=== PATIENT | female | born 1995 | race Caucasian/White ===

== ENCOUNTER 2017-09-29 17:50 | Emergency (ER) | payer MEDICAID ==
[~2017-09-29] VITALS: Ht 170.2 cm; Wt 110.7 kg
[~2017-09-29 17:50] MED LIST: MELATONIN5 M2 PO; PRILOSEC10 MG PO; PROMETHAZINE HC25 M1 PO; TYLENOL325 MG PO
[2017-09-29] MEDS ORDERED: PRENATAL TABLE1 EAC2 PO (18:12)
== END 2017-09-29 21:08 | disposition home or self-care (01) ==
LOC: ED 17:50
DX: O20.0 Threatened abortion (principal); Z87.891 Personal history of nicotine dependence; Z88.0 Allergy status to penicillin; Z79.899 Other long term (current) drug therapy; Z3A.12 12 weeks gestation of pregnancy
CPT/HCPCS: 76801; 76817; 80048; 81001; 84702; 85025; 86900; 86901; 99284

== ENCOUNTER 2018-02-14 14:45 | Emergency (ER) | payer OTHER ==
[~2018-02-14] VITALS: Ht 170.2 cm; Wt 110.7 kg
[~2018-02-14 14:45] MED LIST changes: +PRENATAL TABLE1 EAC2 PO
[2018-02-14] MEDS ORDERED: DIFLUCAN150 MG PO (15:17)
== END 2018-02-14 15:28 | disposition home or self-care (01) ==
LOC: ED 14:45
DX: O98.811 Other maternal infectious and parasitic diseases complicating pregnancy, first trimester (principal); B37.3 Candidiasis of vulva and vagina; O99.89 Other specified diseases and conditions complicating pregnancy, childbirth and the puerperium; R10.13 Epigastric pain; Z88.0 Allergy status to penicillin; Z87.891 Personal history of nicotine dependence; Z3A.08 8 weeks gestation of pregnancy
CPT/HCPCS: 99283

== ENCOUNTER 2018-10-01 03:50 | Inpatient (IN) | payer OTHER ==
[~2018-10-01 03:50] MED LIST changes: +DIFLUCAN150 MG PO; +MACROBID 100 M100 MG PO; +ONDANSETRON HCL8 MG PO; +REGLAN10 MG PO
--- NOTE | 2018-10-02 09:44 | PR ---
[facility] [address] [place], [place] [address] Signed PP Progress Notes Datetime Report Generated by CPArnold: 10/02/2018 09:43 SUBJECTIVE: [id number] Pain: Within normal limits Vital Signs: [id number] Vital Signs: Reviewed; Within Normal Limits EXAM: [id number] Cardiovascular: Not Done Respiratory: Not Done Abdomen/Uterus: Abnormal Lochia: Normal Vulva/Perineum: Not Done Breasts: Not Done CVA Tenderness: Not Done Extremities: Normal Incision: Not Applicable Progress: Normal Exam Comments: Fundus firm, NT @ U. H/H 8.8/27.5, WBC 9.9, plat 150k IMPRESSION/PLAN/PROCEDURES: [id number] Impression: Normal progression Plan: Discharge Procedures: None Progress Notes: Doing well. She is ready for D/C. Signing Physician: Katia Glover MD Copies: ~ *Electronically Signed* 10/02/18 0943 KATIA GLOVER MD PATIENT NAME: TEMITOPE BALDWIN PROGRESS NOTE DATE OF : 96 PHYSICIAN: KATIA GLOVER MD RPT #: [id number] REPORT IS CONFIDENTIAL AND NOT TO BE RELEASED WITHOUT AUTHORIZATION
== END 2018-10-02 14:21 | disposition home or self-care (01) | DRG 806 ==
LOC: FBCO 03:50 → FBC 04:58
PROVIDERS: ADMIT Obstetrics & Gynecology
PROC: 10E0XZZ Delivery of Products of Conception, External Approach (ICD-10-PCS; principal; 2018-10-01)
PROC: 10907ZC Drainage of Amniotic Fluid, Therapeutic from Products of Conception, Via Natural or Artificial Opening (ICD-10-PCS; 2018-10-01)
DX: O62.3 Precipitate labor (principal); O99.324 Drug use complicating childbirth; Z37.0 Single live birth; Z3A.39 39 weeks gestation of pregnancy; O99.62 Diseases of the digestive system complicating childbirth; K80.20 Calculus of gallbladder without cholecystitis without obstruction; K59.09 Other constipation; F12.90 Cannabis use, unspecified, uncomplicated; O99.344 Other mental disorders complicating childbirth; F43.10 Post-traumatic stress disorder, unspecified; O99.214 Obesity complicating childbirth; E66.9 Obesity, unspecified; Z88.0 Allergy status to penicillin; Z86.19 Personal history of other infectious and parasitic diseases; Z87.891 Personal history of nicotine dependence; Z79.899 Other long term (current) drug therapy
CPT/HCPCS: 36415; 85027; J2590

== ENCOUNTER 2019-03-29 08:57 | Emergency (ER) | payer OTHER ==
[~2019-03-29] VITALS: Ht 170.2 cm; Wt 110.7 kg
[2019-03-29] MEDS ORDERED: NORCO 5-325 TA1 EACH PO (09:55)
== END 2019-03-29 10:10 | disposition home or self-care (01) ==
LOC: ED 08:57
DX: S82.832A Other fracture of upper and lower end of left fibula, initial encounter for closed fracture (principal); Z87.891 Personal history of nicotine dependence; Z88.0 Allergy status to penicillin; X50.1XXA Overexertion from prolonged static or awkward postures, initial encounter
CPT/HCPCS: 73610; 99283-25

== ENCOUNTER 2021-09-21 17:29 | Emergency (ER) | payer OTHER ==
[~2021-09-21] VITALS: Ht 170.2 cm; Wt 110.7 kg
[~2021-09-21 17:29] MED LIST changes: +CELECOXIB200 MG PO; +GABAPENTIN300 MG PO; +NORCO 5-325 TA1 EACH PO; +OXYCODONE HCL5 MG PO
[2021-09-21] MEDS ORDERED: ONDANSETRON ODT8 MG PO (20:48)
== END 2021-09-21 21:02 | disposition home or self-care (01) ==
LOC: ED 17:29
DX: U07.1 COVID-19 (principal); Z87.891 Personal history of nicotine dependence; Z88.0 Allergy status to penicillin; Z91.040 Latex allergy status; Z20.822 Contact with and (suspected) exposure to COVID-19
CPT/HCPCS: 36415; 80053; 81001; 83605; 85025; 87040; 99283; A9270; C9803; J7030; U0003

== ENCOUNTER 2023-02-06 14:40 | Emergency (ER) | payer OTHER ==
[~2023-02-06] VITALS: Ht 170.2 cm; Wt 126.1 kg
--- OUTSIDE RECORDS SUMMARY | ~2023-02-06 | XMS | Continuity of Care Document ---
Demographics + + + | Address | [address] | | | [place] [address] | + + + | Preferred Language | Unknown | + + + | Marital Status | Never | + + + | Baptism Affiliation | Unknown | + + + | Race | White | + + + | Ethnic Group | Not or | + + + Author + + + | Author | [facility] | + + + | Organization | [facility] | + + + | Address | [address] | | | [place] [address] | + + + | Phone | | + + + Care Team Providers + + + + | Care Bilingual Legal Assistant Name | Role | Phone | + + + + Unavailable | Unavailable | + + + + Unavailable | Unavailable | + + + + Allergies and Intolerances + + + + + + | date | description | facility | reaction | severity | + + + + + + | (no date) | latex | [facility] | (no reaction) | (no severity) | | [facility] | | | + + + + + + | (no date) | Rash | [facility] | (no reaction) | (no severity) | | | [facility] | | | + + + + + + | (no date) | amoxicillin | [facility] | (no reaction) | (no severity) | | | [facility] | | | + + + + + + Encounters No information. Functional Status No information. Immunizations + + + + | date | description | facility | + + + + | 2014-07-09 00:00 | DTaP | [facility] | + + + + Medications + + + + | date | description | facility | + + + + | 2018-02-14 00:00 | FLUCONAZOLE | [facility] | + + + + | 2021-12-22 00:00 | METOCLOPRAMIDE HCL | [facility] | + + + + | 2021-12-22 00:00 | OMEPRAZOLE | [facility] | + + + + | 2021-12-22 00:00 | MELATONIN | [facility] | + + + + | 2021-12-22 00:00 | ONDANSETRON HCL | [facility] | + + + + | 2021-09-21 00:00 | ONDANSETRON | [facility] | + + + + | 2021-12-22 00:00 | ACETAMINOPHEN | [facility] | + + + + | 2018-04-04 00:00 | NITROFURANTOIN MONOHYD | [facility] | | | MACROCR | | + + + + | 2021-12-22 00:00 | PROMETHAZINE HCL | [facility] | + + + + Problems + + + + | date | description | facility | + + + + | 2017-09-29 00:00 | Threatened | [facility] | + + + + | 2018-02-14 00:00 | Candidiasis of vagina | [facility] | + + + + | 2018-02-14 00:00 | Abdominal pain affecting | [facility] | | | | | + + + + | 2018-04-04 00:00 | Urinary tract infection in | [facility] | | | mother during | | + + + + | 2018-04-04 00:00 | Abdominal pain during | [facility] | | | | | + + + + | 2019-03-29 00:00 | Fracture of left ankle | [facility] | + + + + | 2019-03-29 00:00 | Encounter for medical | [facility] | | | screening examination | | + + + + | 2021-09-21 00:00 | Infection due to severe | [facility] | | | acute respiratory syndrome | | | | coronavirus 2 (SARS-CoV-2) | | + + + + Procedures No information. Results/Labs +--------+--------+ +---------+--------+---------+ | test | date | facility | value | unit | notes | +--------+--------+ +---------+--------+---------+ + + | Result panel 1 | + + + + + +-------+ + + | | 2021-09-21 | [facility] | 5.4 | (missing) | (missing) | | (unavailable | 17:58 [facility] | | | | + + + +-------+ + + + + | Result panel 2 | + + + + + +--------+ + + | | 2021-09-21 | [facility] | 84.8 | (missing) | (missing) | | (unavailable | 17:58 [facility] | | | | + + + +--------+ + + + + | Result panel 3 | + + + + + +-------+ + + | | 2021-09-21 | [facility] | 5.9 | (missing) | (missing) | | (unavailable | 17:58 [facility] | | | | + + + +-------+ + + + + | Result panel 4 | + + + + + +-------+ + + | | 2021-09-21 | [facility] | 8.1 | (missing) | (missing) | | (unavailable | 17:58 [facility] | | | | + + + +-------+ + + + + | Result panel 5 | + + + + + +-------+ + + | | 2021-09-21 | [facility] | 0.8 | (missing) | (missing) | | (unavailable | 17:58 [facility] | | | | + + + +-------+ + + + + | Result panel 6 | + + + + + +-------+ + + | | 2021-09-21 | [facility] | 0.4 | (missing) | (missing) | | (unavailable | 17:58 [facility] | | | | + + + +-------+ + + + + | Result panel 7 | + + + + + +--------+ + + | | 2021-09-21 | [facility] | 4.16 | (missing) | (missing) | | (unavailable | 17:58 [facility] | | | | + + + +--------+ + + + + | Result panel 8 | + + + + + +------+---------+ + | | 2021-09-21 | [facility] | 94 | mg/dL | (missing) | | (unavailable | 17:58 [facility] | | | | + + + +------+---------+ + + + | Result panel 9 | + + + + + +--------+ + + | | 2021-09-21 | [facility] | 11.1 | (missing) | (missing) | | (unavailable | 17:58 [facility] | | | | + + + +--------+ + + + + | Result panel 10 | + + + + + +-----+---------+ + | | 2021-09-21 | [facility] | 9 | mg/dL | (missing) | | (unavailable | 17:58 [facility] | | | | + + + +-----+---------+ + + + | Result panel 11 | + + + + + +--------+---------+ + | | 2021-09-21 | [facility] | 1.01 | mg/dL | (missing) | | (unavailable | 17:58 [facility] | | | | + + + +--------+---------+ + + + | Result panel 12 | + + + + + + + + + | | 2021-09-21 | [facility] | > 60.00 | (missing) | (missing) | | (unavailable | 17:58 [facility] | | | | + + + + + + + + + | Result panel 13 | + + + + + +--------+ + + | | 2021-09-21 | [facility] | 8.91 | (missing) | (missing) | | (unavailable | 17:58 [facility] | | | | + + + +--------+ + + + + | Result panel 14 | + + + + + +-------+ + + | | 2021-09-21 | [facility] | 138 | (missing) | (missing) | | (unavailable | 17:58 [facility] | | | | + + + +-------+ + + + + | Result panel 15 | + + + + + +-------+ + + | | 2021-09-21 | [facility] | 3.6 | (missing) | (missing) | | (unavailable | 17:58 [facility] | | | | + + + +-------+ + + + + | Result panel 16 | + + + + + +-------+ + + | | 2021-09-21 | [facility] | 103 | (missing) | (missing) | | (unavailable | 17:58 [facility] | | | | + + + +-------+ + + + + | Result panel 17 | + + + + + +------+ + + | | 2021-09-21 | [facility] | 25 | (missing) | (missing) | | (unavailable | 17:58 [facility] | | | | + + + +------+ + + + + | Result panel 18 | + + + + + +--------+ + + | | 2021-09-21 | [facility] | 13.6 | (missing) | (missing) | | (unavailable | 17:58 [facility] | | | | + + + +--------+ + + + + | Result panel 19 | + + + + + +-------+---------+ + | | 2021-09-21 | [facility] | 9.0 | mg/dL | (missing) | | (unavailable | 17:58 [facility] | | | | + + + +-------+---------+ + + + | Result panel 20 | + + + + + +--------+ + + | | 2021-09-21 | [facility] | 34.0 | (missing) | (missing) | | (unavailable | 17:58 [facility] | | | | + + + +--------+ + + + + | Result panel 21 | + + + + + +-------+ + + | | 2021-09-21 | [facility] | 7.4 | (missing) | (missing) | | (unavailable | 17:58 [facility] | | | | + + + +-------+ + + + + | Result panel 22 | + + + + + +-------+ + + | | 2021-09-21 | [facility] | 3.6 | (missing) | (missing) | | (unavailable | 17:58 [facility] | | | | + + + +-------+ + + + + | Result panel 23 | + + + + + +-------+ + + | | 2021-09-21 | [facility] | 3.8 | (missing) | (missing) | | (unavailable | 17:58 [facility] | | | | + + + +-------+ + + + + | Result panel 24 | + + + + + +--------+ + + | | 2021-09-21 | [facility] | 0.95 | (missing) | (missing) | | (unavailable | 17:58 [facility] | | | | + + + +--------+ + + + + | Result panel 25 | + + + + + +-------+ + + | | 2021-09-21 | [facility] | 0.2 | (missing) | (missing) | | (unavailable | 17:58 [facility] | | | | + + + +-------+ + + + + | Result panel 26 | + + + + + +------+ + + | | 2021-09-21 | [facility] | 22 | (missing) | (missing) | | (unavailable | 17:58 [facility] | | | | + + + +------+ + + + + | Result panel 27 | + + + + + +------+ + + | | 2021-09-21 | [facility] | 28 | (missing) | (missing) | | (unavailable | 17:58 [facility] | | | | + + + +------+ + + + + | Result panel 28 | + + + + + +------+ + + | | 2021-09-21 | [facility] | 90 | (missing) | (missing) | | (unavailable | 17:58 [facility] | | | | + + + +------+ + + + + | Result panel 29 | + + + + + +--------+ + + | | 2021-09-21 | [facility] | 81.7 | (missing) | (missing) | | (unavailable | 17:58 [facility] | | | | + + + +--------+ + + + + | Result panel 30 | + + + + + +--------+ + + | | 2021-09-21 | [facility] | 26.6 | (missing) | (missing) | | (unavailable | 17:58 [facility] | | | | + + + +--------+ + + + + | Result panel 31 | + + + + + +--------+ + + | | 2021-09-21 | [facility] | 32.5 | (missing) | (missing) | | (unavailable | 17:58 [facility] | | | | + + + +--------+ + + + + | Result panel 32 | + + + + + +--------+ + + | | 2021-09-21 | [facility] | 15.0 | (missing) | (missing) | | (unavailable | 17:58 [facility] | | | | + + + +--------+ + + + + | Result panel 33 | + + + + + +-------+ + + | | 2021-09-21 | [facility] | 154 | (missing) | (missing) | | (unavailable | 17:58 [facility] | | | | + + + +-------+ + + + + | Result panel 34 | + + + + + + + + + | | 2021-09-21 | [facility] | YELLOW | (missing) | (missing) | | (unavailable | 18:42 | [facility] | | | | + + + + + + + + + | Result panel 35 | + + + + + +---------+ + + | | 2021-09-21 | [facility] | CLEAR | (missing) | (missing) | | (unavailable | 18:42 [facility] | | | | + + + +---------+ + + + + | Result panel 36 | + + + + + + + + + | | 2021-09-21 | [facility] | NEGATIVE | (missing) | (missing) | | (unavailable | 18:42 [facility] | | | | + + + + + + + + + | Result panel 37 | + + + + + + + + + | | 2021-09-21 | [facility] | NEGATIVE | (missing) | (missing) | | (unavailable | 18:42 [facility] | | | | + + + + + + + + + | Result panel 38 | + + + + + + + + + | | 2021-09-21 | [facility] | NEGATIVE | (missing) | (missing) | | (unavailable | 18:42 [facility] | | | | + + + + + + + + + | Result panel 39 | + + + + + +---------+ + + | | 2021-09-21 | [facility] | 1.015 | (missing) | (missing) | | (unavailable | 18:42 | [facility] | | | | + + + +---------+ + + + + | Result panel 40 | + + + + + + + + + | | 2021-09-21 | [facility] | NEGATIVE | (missing) | (missing) | | (unavailable | 18:42 [facility] | | | | + + + + + + + + + | Result panel 41 | + + + + + +-------+ + + | | 2021-09-21 | [facility] | 8.0 | (missing) | (missing) | | (unavailable | 18:42 [facility] | | | | + + + +-------+ + + + + | Result panel 42 | + + + + + + + + + | | 2021-09-21 | [facility] | NEGATIVE | (missing) | (missing) | | (unavailable | 18:42 [facility] | | | | + + + + + + + + + | Result panel 43 | + + + + + + + + + | | 2021-09-21 | [facility] | NORMAL | (missing) | (missing) | | (unavailable | 18:42 [facility] | | | | + + + + + + + + + | Result panel 44 | + + + + + + + + + | | 2021-09-21 | [facility] | NEGATIVE | (missing) | (missing) | | (unavailable | 18:42 | [facility] | | | | + + + + + + + + + | Result panel 45 | + + + + + + + + + | | 2021-09-21 | [facility] | NEGATIVE | (missing) | (missing) | | (unavailable | 18:42 [facility] | | | | + + + + + + + + + | Result panel 46 | + + + + + +------+ + + | | 2021-09-21 | [facility] | No | (missing) | (missing) | | (unavailable | 18:42 [facility] | | | | + + + +------+ + + + + | Result panel 47 | + + + + + + + + + | | 2021-09-21 | [facility] | CLEAN CATCH | (missing) | (missing) | | (unavailable | 18:42 [facility] | | | | + + + + + + + + + | Result panel 48 | + + + + + +-------+ + + | | 2021-09-21 | [facility] | 0.9 | (missing) | (missing) | | (unavailable | 19:33 [facility] | | | | + + + +-------+ + + + + | Result panel 49 | + + + + + + + + + | | 2021-09-21 | [facility] | POSITIVE | (missing) | (missing) | | (unavailable | 19:35 [facility] | | | | + + + + + + + + + | Result panel 50 | + + + + + + + + + | | 2021-09-21 | [facility] | NEGATIVE | (missing) | (missing) | | (unavailable | 19:35 [facility] | | | | + + + + + + + + + | Result panel 51 | + + + + + + + + + | | 2021-09-21 | [facility] | NEGATIVE | (missing) | (missing) | | (unavailable | 19:35 [facility] | | | | + + + + + + + + + | Result panel 52 | + + + + + + + + + | | 2021-09-21 | [facility] | NEGATIVE | (missing) | (missing) | | (unavailable | 19:35 [facility] | | | | + + + + + + + Social History No information. Vital Signs + + + +---------+ | date | measurement | value | units | + + + +---------+ | 2021-09-21 00:00 | BMI | 38.2 | kg/m2 | + + + +---------+ | 2021-09-21 00:00 | BP_diastolic | 55 | mmHg | + + + +---------+ | 2021-09-21 00:00 | BP_systolic | 130 | mmHg | + + + +---------+ | 2021-09-21 00:00 | heart_rate | 99 | /min | + + + +---------+ | 2021-09-21 00:00 | height_metric | 170.18 | cm | + + + +---------+ | 2021-09-21 00:00 | height_standard | 67 | in | + + + +---------+ | 2021-09-21 00:00 | o2_saturation | 100 | % | + + + +---------+ | 2021-09-21 00:00 | respiration_rate | 16 | /min | + + + +---------+ | 2021-09-21 00:00 | temperature_metric | 37.39 | C | | | | | | + + + +---------+ | 2021-09-21 00:00 | | 99.3 | F | | | temperature_standar | | | | | d | | | + + + +---------+ | 2021-09-21 00:00 | weight_metric | 110.68 | kg | + + + +---------+ | 2021-09-21 00:00 | weight_standard | 244 | lb | + + + +---------+ | 2021-09-21 00:00 | weight_standard | 244.01 | lb | + + + +---------+"
--- OUTSIDE RECORDS SUMMARY | ~2023-02-06 | XMS | Continuity of Care Document ---
Demographics + + + | Address | [address] | | | [place] [address] | + + + | Preferred Language | Unknown | + + + | Marital Status | Never | + + + | Mandaen Affiliation | Unknown | + + + | Race | White | + + + | Ethnic Group | Not or | + + + Author + + + | Author | [facility] | + + + | Organization | [facility] | + + + | Address | [address] | | | [place] [address] | + + + | Phone | | + + + Care Team Providers + + + + | Care Fork Repairer Name | Role | Phone | + [...] + | 2014-07-09 00:00 | DTaP | [facility] | + + + + Medications + + + + | date | description | facility | + + + + | 2018-02-14 00:00 | FLUCONAZOLE | [facility] | + + + + | 2021-12-22 00:00 | METOCLOPRAMIDE HCL | [facility] | + + + + | 2021-12-22 00:00 | OMEPRAZOLE | [facility] | + + + + | 2021-12-22 00:00 | MELATONIN | [facility] | + + + + | 2021-12-22 00:00 | ONDANSETRON HCL | [facility] | + + + + | 2021-09-21 00:00 | ONDANSETRON | [facility] | + + + + | 2021-12-22 00:00 | ACETAMINOPHEN | [facility] | + + + + | 2018-04-04 00:00 | NITROFURANTOIN MONOHYD | [facility] | | | MACROCR | | + + + + | 2021-12-22 00:00 | PROMETHAZINE HCL | [facility] | + + + + Problems + + + + | date | description | facility | + + + + | 2017-09-29 00:00 | Threatened | [facility] | + + + + | 2018-02-14 00:00 | Candidiasis of vagina | [facility] | + + + + | 2018-02-14 00:00 | Abdominal pain affecting | [facility] | | | | | + + + + | 2018-04-04 00:00 | Urinary tract infection in | [facility] | | | mother during | | + + + + | 2018-04-04 00:00 | Abdominal pain during | [facility] | | | | | + + + + | 2019-03-29 00:00 | Fracture of left ankle | [facility] | + + + + | 2019-03-29 00:00 | Encounter for medical | [facility] | | | screening examination | | + + + + | 2021-09-21 00:00 | Infection due to severe | [facility] | | | acute respiratory syndrome | [...]
[~2023-02-06 14:40] MED LIST changes: +ONDANSETRON ODT8 MG PO
[2023-02-06 16:22] LABS: BILIRUBIN, URINE NEGATIVE (negative); BLOOD/HGB, URINE NEGATIVE (Negative); KETONE, URINE NEGATIVE (Negative); LEUK ESTERASE, URINE MODERATE (negative); NITRITE, URINE NEGATIVE (negative); PH, URINE 5.5 (5-7)
[2023-02-06 16:30] LABS: CRYSTALS, URINE NONE SEEN (0-1+); EPITHELIAL CELLS, URINE SQUAMOUS 3+ /lpf (0-1+)
[2023-02-06 16:31] LABS: BACTERIA, URINE RARE /hpf (negative); CASTS, URINE NONE SEEN \\lpf; COLLECTION TYPE, URINE CLEAN CATCH; RED BLOOD CELLS, URINE 0-1 /hpf (0-5); REFLEX CULTURE, URINE No (No)
[2023-02-06 16:40] LABS: BASOPHILS 0.6 % (0-2); EOSINOPHILS 0.9 % (0-6); HEMATOCRIT 37.5 % (35.0-50.0); LYMPHOCYTES 29.5 % (24-44); MCV 84.4 fl (81-99); MONOCYTES 7.8 % (0-12); NEUTROPHILS 61.2 % (39-80); PLATELET COUNT 202 K/uL (140-440); RBC 4.44 M/ul (4.3-5.7); RDW 15.7 (10.5-15.0)
[2023-02-06 17:01] LABS: ALBUMIN 3.5 g/dL (3.4-5.0); ALBUMIN/GLOBULIN RATIO 0.95 (1.1-2.4); BILIRUBIN, TOTAL 0.3 ng/dL (0.2-1.0); BUN/CREATININE RATIO 10.12 (6.0-28.6); CALCIUM 9.2 mg/dL (8.5-10.1); CREATININE, SERUM 0.79 mg/dL (0.55-1.02); PROTEIN, TOTAL 7.2 g/dL (6.4-8.2)
[2023-02-06 17:07] LABS: ABO A; RH POSITIVE
[2023-02-06 18:35] VITALS: BP 119/67
== END 2023-02-06 18:39 | disposition home or self-care (01) ==
LOC: ED 14:40
PROVIDERS: Emergency Medicine
DX: O20.0 Threatened abortion (principal); Z3A.01 Less than 8 weeks gestation of pregnancy; Z87.891 Personal history of nicotine dependence; Z88.0 Allergy status to penicillin; Z91.040 Latex allergy status; Z79.899 Other long term (current) drug therapy
CPT/HCPCS: 36415; 76801; 76817; 80053; 81001; 84702; 85025; 86900; 86901; 99284-25

== ENCOUNTER 2023-03-25 13:06 | Emergency (ER) | payer OTHER ==
[~2023-03-25] VITALS: Ht 170.2 cm; Wt 126.1 kg
[2023-03-25 14:16] LABS: BASOPHILS 1.2 % (0-2); HEMATOCRIT 37.1 % (35.0-50.0); LYMPHOCYTES 28.3 % (24-44); MCH 26.9 (27-36); MCHC 32.3 g/dl (30-36); MCV 83.3 fl (81-99); MONOCYTES 6.4 % (0-12); NEUTROPHILS 63.1 % (39-80); PLATELET COUNT 210 K/uL (140-440); RBC 4.45 M/ul (4.3-5.7); RDW 15.1 (10.5-15.0)
[2023-03-25 14:29] LABS: ALBUMIN 3.6 g/dL (3.4-5.0); ALBUMIN/GLOBULIN RATIO 0.88 (1.1-2.4); ANION GAP 12.1 (7-21); BILIRUBIN, TOTAL 0.3 ng/dL (0.2-1.0); BUN/CREATININE RATIO 7.22 (6.0-28.6); CALCIUM 9.2 mg/dL (8.5-10.1); CREATININE, SERUM 0.83 mg/dL (0.55-1.02); POTASSIUM 4.1 mmol/L (3.5-5.1); PROTEIN, TOTAL 7.7 g/dL (6.4-8.2)
[2023-03-25 15:03] LABS: BILIRUBIN, URINE NEGATIVE (negative); BLOOD/HGB, URINE NEGATIVE (Negative); KETONE, URINE NEGATIVE (Negative); LEUK ESTERASE, URINE SMALL (negative); NITRITE, URINE NEGATIVE (negative); PH, URINE 6.5 (5-7)
[2023-03-25 15:17] LABS: BACTERIA, URINE NONE SEEN /hpf (negative); CASTS, URINE NONE SEEN \\lpf; CRYSTALS, URINE NONE SEEN (0-1+); EPITHELIAL CELLS, URINE SQUAMOUS 1+ /lpf (0-1+); RED BLOOD CELLS, URINE 0-1 /hpf (0-5)
[2023-03-25 15:18] LABS: COLLECTION TYPE, URINE CLEAN CATCH; REFLEX CULTURE, URINE No (No)
[2023-03-25 16:24] VITALS: BP 106/66
== END 2023-03-25 16:26 | disposition home or self-care (01) ==
LOC: ED 13:06
PROVIDERS: Emergency Medicine
DX: R10.2 Pelvic and perineal pain (principal); Z87.59 Personal history of other complications of pregnancy, childbirth and the puerperium; Z91.040 Latex allergy status; Z87.891 Personal history of nicotine dependence
CPT/HCPCS: 36415; 80053; 81001; 83690; 84702; 84703; 85025; 99284

== ENCOUNTER 2023-08-02 19:14 | Emergency (ER) | payer OTHER ==
[~2023-08-02] VITALS: Ht 170.2 cm; Wt 126.2 kg
[2023-08-02 19:33] LABS: BASOPHILS 0.6 % (0-2); EOSINOPHILS 1.4 % (0-6); HEMATOCRIT 40.6 % (35.0-50.0); HEMOGLOBIN 13.6 g/dL (12.0-18.0); LYMPHOCYTES 29.7 % (24-44); MCH 27.8 (27-36); MCHC 33.5 g/dl (30-36); MONOCYTES 8.4 % (0-12); NEUTROPHILS 59.9 % (39-80); PLATELET COUNT 227 K/uL (140-440); RBC 4.89 M/ul (4.3-5.7); RDW 16.7 (10.5-15.0)
[2023-08-02] MEDS ORDERED: KETOROLAC TROMETHAMINE 30 MG/ML VIAL IV ONE (19:45)
[2023-08-02] MEDS ORDERED: FAMOTIDINE 20 MG/ 2 ML VIAL IV ONE (19:45)
[2023-08-02] MEDS ORDERED: ondansetron HCL 4 MG/2 ML VIAL IV ONE (19:45)
[2023-08-02 19:48] LABS: ALBUMIN 3.4 g/dL (3.4-5.0); ALBUMIN/GLOBULIN RATIO 0.71 (1.1-2.4); ANION GAP 12.5 (7-21); BILIRUBIN, TOTAL 0.2 ng/dL (0.2-1.0); BUN/CREATININE RATIO 12.14 (6.0-28.6); CALCIUM 9.2 mg/dL (8.5-10.1); CREATININE, SERUM 1.07 mg/dL (0.55-1.02); POTASSIUM 3.5 mmol/L (3.5-5.1); PROTEIN, TOTAL 8.2 g/dL (6.4-8.2)
[2023-08-02] MEDS ORDERED: LACTATED RINGER'S 1,000 ML IV ONE (20:00)
[2023-08-02 20:36] LABS: BILIRUBIN, URINE NEGATIVE (negative); BLOOD/HGB, URINE NEGATIVE (Negative); KETONE, URINE NEGATIVE (Negative); LEUK ESTERASE, URINE NEGATIVE (negative); NITRITE, URINE NEGATIVE (negative)
[2023-08-02 21:08] VITALS: BP 115/70
== END 2023-08-02 21:04 | disposition home or self-care (01) ==
LOC: ED 19:14
PROVIDERS: Internal Medicine
DX: K52.9 Noninfective gastroenteritis and colitis, unspecified (principal); Z87.891 Personal history of nicotine dependence; Z88.0 Allergy status to penicillin; Z91.040 Latex allergy status
CPT/HCPCS: 36415; 80053; 81003; 83690; 84703; 85025; 96374; 96375; 99284-25; J1885; J2405; J7121